=== PATIENT | male | born 1995 | race Caucasian/White ===

== ENCOUNTER 2019-05-30 14:44 | Observation (INO) | payer SELFPAY ==
[2019-05-30] MEDS ORDERED: Sodium Chloride 0.9% 1,000 ML IV ONE (14:54)
--- NOTE | 2019-05-30 15:00 | EDM.PDOC ---
ED HPI GENERAL MEDICAL PROBLEM - General Chief Complaint: Skin Complaint Stated Complaint: LEFT ARM SWOLLEN Time Seen by Provider: 05/30/19 14:45 - History of Present Illness INITIAL COMMENTS - FREE TEXT/NARRATIVE: HISTORY AND PHYSICAL: History of present illness: Patient 24-year-old white male history of IV drug abuse who presents with concern of swollen left arm and concern of infection from IV drug abuse is been worse over last 24-48 hours and started in the antecubital area where he injects he denies fever chills nausea vomiting chest returns breath or other concern Review of systems: As per history of present illness and below otherwise all systems reviewed and negative. Past medical history: As per history of present illness and as reviewed below otherwise noncontributory. Surgical history: As per history of present illness and as reviewed below otherwise noncontributory. Social history: No reported history of drug or alcohol abuse. Family history: As per history of present illness and as reviewed below otherwise noncontributory. Physical exam: HEENT: Atraumatic, normocephalic, pupils reactive, negative for conjunctival pallor or scleral icterus, mucous membranes moist, throat clear, neck supple, nontender, trachea midline. Lungs: Clear to auscultation, breath sounds equal bilaterally, chest nontender. Heart: S1S2, regular, negative for clicks, rubs, or JVD. Abdomen: Soft, nondistended, nontender. Negative for masses or hepatosplenomegaly. Negative for costovertebral tenderness. Pelvis: Stable nontender. Genitourinary: Deferred. Rectal: Deferred. Extremities: Erythema swelling induration and warmth noted in the antecubital fossa of his left arm with moderate to large swelling neurovascular exam is unremarkable. Neuro: Awake, alert, oriented. Cranial nerves II through XII unremarkable. Cerebellum unremarkable. Motor and sensory unremarkable throughout. Exam nonfocal. Diagnostics: CBC CMP blood culture 2 x-ray left humerus left forearm UA urine drug screen Therapeutics: Saline 1 L bolus vancomycin 1 g IV Impression: #1 history of IV drug abuse #2 cellulitis left upper extremity Definitive disposition and diagnosis as appropriate pending reevaluation and review of above. Left Arm Pain Score (Numeric/FACES): 8 - Related Data Allergies Allergy/AdvReac Type Severity Reaction Status Date / Time No Known Allergies Allergy Verified 05/30/19 14:55 Home Meds: Home Meds . [No Known Home Meds] 10/16/18 [History] Past Medical History - Past Health History Medical/Surgical History: Denies Medical/Surgical History Social & Family History - Family History Family Medical History: Noncontributory - Caffeine Use Caffeine Use: Reports: Soda ED ROS GENERAL - Review of Systems Review Of Systems: ROS reveals no pertinent complaints other than HPI. ED EXAM, SKIN/RASH Exam: See Below (See dictation) Course - Vital Signs Last Recorded V/S: Last Vital Signs Temp 36.1 C 05/30/19 14:51 Pulse 116 H 05/30/19 14:51 Resp 18 05/30/19 14:51 BP 144/88 H 05/30/19 14:51 Pulse Ox 98 05/30/19 14:51 - Orders/Labs/Meds Orders: Active Orders 24 hr Category Date Time Status Forearm 2V Lt [CR] Stat Exams 05/30/19 14:54 Ordered Humerus Lt [CR] Stat Exams 05/30/19 14:54 Ordered CBC WITH AUTO DIFF [HEME] Stat Lab 05/30/19 14:53 Ordered COMPREHENSIVE METABOLIC PN,CMP [CHEM] Stat Lab 05/30/19 14:53 Ordered CULTURE BLOOD [BC] Stat Lab 05/30/19 14:54 Ordered CULTURE BLOOD [BC] Stat Lab 05/30/19 14:54 Ordered DRUG SCREEN, URINE [URCHEM] Stat Lab 05/30/19 14:54 Ordered UA RFX CARTER AND CULT IF INDIC [URIN] Stat Lab 05/30/19 14:54 Ordered Sodium Chloride 0.9% [Normal Saline] 1,000 ml Med 05/30/19 14:54 Ordered IV STAT Vancomycin 1 gm Med 05/30/19 14:54 Ordered Sodium Chloride 0.9% [Normal Saline] 250 ml IV ONETIME Blood Culture x2 Reflex Set [OM.PC] Stat Oth 05/30/19 14:54 Ordered Medication Orders Sodium Chloride (Normal Saline) 1,000 mls @ 999 mls/hr IV STAT ONE Stop: 05/30/19 15:54 Vancomycin HCl 1 gm/ Sodium (Chloride) 250 mls @ 166 mls/hr IV ONETIME ONE Stop: 05/30/19 16:24 Meds: Medications Generic Name Dose Route Start Last Admin Trade Name Freq PRN Reason Stop Dose Admin Sodium Chloride 1,000 mls @ 999 mls/hr 08/16/19 14:54 Normal Saline IV 05/30/19 15:54 STAT ONE Vancomycin HCl 1 gm/ Sodium 250 mls @ 166 mls/hr 05/30/19 14:54 Chloride IV 05/30/19 16:24 ONETIME ONE Departure - Departure Time of Disposition: 14:59 Disposition: Admitted As Inpatient 66 Condition: Good Clinical Impression: Cellulitis, IV drug abuse - Discharge Information Referrals: PCP,Unknown [Primary Care Provider] - - My Orders Last 24 Hours: My Active Orders 05/30/19 14:53 CBC WITH AUTO DIFF [HEME] Stat COMPREHENSIVE METABOLIC PN,CMP [CHEM] Stat 05/30/19 14:54 Forearm 2V Lt [CR] Stat Humerus Lt [CR] Stat CULTURE BLOOD [BC] Stat CULTURE BLOOD [BC] Stat DRUG SCREEN, URINE [URCHEM] Stat UA RFX CARTER AND CULT IF INDIC [URIN] Stat Sodium Chloride 0.9% [Normal Saline] 1,000 ml IV STAT Vancomycin 1 gm Sodium Chloride 0.9% [Normal Saline] 250 ml IV ONETIME Blood Culture x2 Reflex Set [OM.PC] Stat - Assessment/Plan Last 24 Hours: My Active Orders 05/30/19 14:53 CBC WITH AUTO DIFF [HEME] Stat COMPREHENSIVE METABOLIC PN,CMP [CHEM] Stat 05/30/19 14:54 Forearm 2V Lt [CR] Stat Humerus Lt [CR] Stat CULTURE BLOOD [BC] Stat CULTURE BLOOD [BC] Stat DRUG SCREEN, URINE [URCHEM] Stat UA RFX CARTER AND CULT IF INDIC [URIN] Stat Sodium Chloride 0.9% [Normal Saline] 1,000 ml IV STAT Vancomycin 1 gm Sodium Chloride 0.9% [Normal Saline] 250 ml IV ONETIME Blood Culture x2 Reflex Set [OM.PC] Stat
[2019-05-30] MEDS ORDERED: Vancomycin 1 GM SDV ONE (15:06)
[2019-05-30] MEDS ORDERED: Sodium Chloride 0.9% 250 ML ONE (15:08)
[2019-05-30 15:55] LABS: CHLORIDE,CL 101 mmol/L (98-107); SODIUM,NA 138 mmol/L (136-148)
--- NOTE | 2019-05-30 16:35 | CR ---
Indication: Pain Technique: Two views of the left forearm Comparison: None available Findings: Bones: Alignment is normal. No fractures or bone lesions. Joint spaces: Unremarkable. Soft tissues: Unremarkable. Impression: Negative. Dictated by Roque Alvarez MD @ 05/30/2019 4:34:26 PM Dictated by: Roque Alvarez MD @ 05/30/2019 16:34:29 (Electronically Signed)
[2019-05-30] MEDS ORDERED: Acetaminophen 325 MG Tab PO ONE (16:37)
--- NOTE | 2019-05-30 16:37 | CR ---
Indication: Pain Technique: Two views of the left humerus Comparison: None available Findings: Bones: Alignment is normal. No fractures or bone lesions. Joint spaces: Unremarkable. Soft tissues: Unremarkable. Impression: Negative. Dictated by Roque Alvarze MD @ 05/30/2019 4:35:39 PM Dictated by: Roque Alvarez MD @ 05/30/2019 16:35:44 (Electronically Signed)
[2019-05-30] MEDS ORDERED: Acetaminophen 500 MG Tab ONE (16:46)
[2019-05-30] MEDS ORDERED: Ketorolac 30 MG/ML SDV IM PRN (16:50)
[2019-05-30] MEDS ORDERED: Ondansetron 4 MG/2 ML SDV IVPUSH PRN (16:50)
[2019-05-30] MEDS ORDERED: Ibuprofen 800 MG Tab PO PRN (16:50)
[2019-05-30] MEDS ORDERED: Ondansetron 4 MG Tab.DIS PO PRN (16:50)
[2019-05-30] MEDS ORDERED: Acetaminophen 325 MG Tab PO PRN (16:50)
[2019-05-30] MEDS ORDERED: Enoxaparin 40 MG/0.4 ML Syringe SUBCUT SCH (17:00)
--- NOTE | 2019-05-30 17:25 | PCM.HP.2 ---
<Cristi Caceres - Last Filed: 05/30/19 17:28> H&P History of Present Illness - General Date of Service: 05/30/19 Admit Problem/Dx: Admission Diagnosis/Problem Admission Diagnosis/Problem Cellulitis - History of Present Illness Initial Comments - Free Text/Narative: 24 y/o male with history of polysubstance abuse who presented to the ER complaining of left forearm, elbow pain. Patient states that he injected IV meth on his left forearm about 2 days ago. He has previously injected heroin as well in the past. States that he started having left forearm pain and swelling yesterday. Red, warm and tender. Pain rated 8/10. Able to move fingers and sensation intact. Endorses subjective fevers. No vomiting, dyspnea, abdominal pain, dysuria, diarrhea. Denies any pain, rashes anywhere else on body. Has not taken any antibiotics at home. He works in [employer]. Lives with his father. Drinks occasionally. No history of withdrawal seizures. Not taking any other prescriptions or over the counter meds. In the ER, he was found to have some mild leukocytosis. No fever. Xray of left elbow, forearm did not show any bone involvement. Received one dose of vancomycin. Left Arm Pain Score (Numeric/FACES): 8 - Related Data Allergies/Adverse Reactions: Allergies Allergy/AdvReac Type Severity Reaction Status Date / Time No Known Allergies Allergy Verified 05/30/19 14:55 Home Medications: Home Meds . [No Known Home Meds] 10/16/18 [History] Past Medical History - Past Health History Medical/Surgical History: Denies Medical/Surgical History HEENT History: Reports: None Cardiovascular History: Reports: None Respiratory History: Reports: None Gastrointestinal History: Reports: None Genitourinary History: Reports: None Musculoskeletal History: Reports: None Neurological History: Reports: None Psychiatric History: Reports: None Endocrine/Metabolic History: Reports: None Oncologic (Cancer) History: Reports: None Dermatologic History: Reports: None - Infectious Disease History Infectious Disease History: Reports: None - Past Surgical History Head Surgeries/Procedures: Reports: None Male Surgical History: Reports: None Social & Family History - Family History Family Medical History: Noncontributory - Tobacco Use Smoking Status *Q: Never Smoker Second Hand Smoke Exposure: No - Caffeine Use Caffeine Use: Reports: Soda - Recreational Drug Use Recreational Drug Use: Yes Recreational Drug Type: Reports: Methamphetamine Recreational Drug Use Frequency: Daily H&P Review of Systems - Review of Systems: Review Of Systems: ROS reveals no pertinent complaints other than HPI. Exam - Exam Exam: See Below - Vital Signs Vital Signs: Last Vital Signs Temp 36.6 C 05/30/19 16:38 Pulse 103 H 05/30/19 16:38 Resp 20 05/30/19 16:38 BP 144/88 H 05/30/19 14:51 Pulse Ox 100 05/30/19 16:38 Weight: 83.915 kg - Exam General: Alert, Oriented, Cooperative HEENT: Mucosa Moist & [place] Lungs: Clear to Auscultation, Normal Respiratory Effort. No: Crackles, Wheezing Cardiovascular: Regular Rate, Regular Rhythm GI/Abdominal Exam: Normal Bowel Sounds, Soft, Non-Tender Extremities: Normal Inspection, No Pedal Edema Skin: Other (left forearm- swelling from elbow down to forearm. warm and tender. forming abscess on left AC fossa. sensation intact. able to move fingers.) Neuro Extensive - Mental Status: Alert, Oriented x3 - Patient Data Lab Results Last 24 hrs: Laboratory Results - last 24 hr 05/30/19 05/30/19 Range/Units 15:13 15:13 WBC 12.78 H (4.0-11.0) K/uL RBC 4.95 (4.50-5.90) M/uL Hgb 14.8 (13.0-17.0) g/dL Hct 44.3 (38.0-50.0) % MCV 89.5 (80.0-98.0) fL MCH 29.9 (27.0-32.0) pg MCHC 33.4 (31.0-37.0) g/dL RDW Std Deviation 41.9 (28.0-62.0) fl RDW Coeff of Remedios 13 (11.0-15.0) % Plt Count 250 (150-400) K/uL MPV 9.40 (7.40-12.00) fL Neut % (Auto) 76.9 (48.0-80.0) % Lymph % (Auto) 14.2 L (16.0-40.0) % [place] % (Auto) 8.2 (0.0-15.0) % Eos % (Auto) 0.5 (0.0-7.0) % Baso % (Auto) 0.2 (0.0-1.5) % Neut # (Auto) 9.8 H (1.4-5.7) K/uL Lymph # (Auto) 1.8 (0.6-2.4) K/uL [place] # (Auto) 1.1 H (0.0-0.8) K/uL Eos # (Auto) 0.1 (0.0-0.7) K/uL Baso # (Auto) 0.0 (0.0-0.1) K/uL Nucleated RBC % 0.0 /100WBC Nucleated RBCs # 0 K/uL Sodium 138 (136-148) mmol/L Potassium 4.0 (3.5-5.1) mmol/L Chloride 101 (98-107) mmol/L Carbon Dioxide 23.2 (21.0-32.0) mmol/L BUN 7 (7.0-18.0) mg/dL Creatinine 0.8 (0.8-1.3) mg/dL Est Cr Clr Drug Dosing 147.01 mL/min Estimated GFR (MDRD) > 60.0 ml/min Glucose 96 (74-106) mg/dL Calcium 9.4 (8.5-10.1) mg/dL Total Bilirubin 0.7 (0.2-1.0) mg/dL AST 13 L (15-37) IU/L ALT 19 (14-63) IU/L Alkaline Phosphatase 81 (46-116) U/L Total Protein 7.4 (6.4-8.2) g/dL Albumin 3.4 (3.4-5.0) g/dL Globulin 4.0 (2.6-4.0) g/dL Albumin/Globulin Ratio 0.9 (0.9-1.6) Result Diagrams: 05/30/19 15:13 05/30/19 15:13 Problem List Initiated/Reviewed/Updated: Yes Orders Last 24hrs: Active Orders 24 hr Category Date Time Status Patient Status [ADT] Routine ADT 05/30/19 16:50 Active Patient Status [ADT] Stat ADT 05/30/19 16:50 Active Intake and Output [RC] QSHIFT Care 05/30/19 16:51 Active Oxygen Therapy [RC] PRN Care 05/30/19 16:50 Active Up ad Farzaneh [RC] ASDIRECTED Care 05/30/19 16:50 Active VTE/DVT Education [RC] PER UNIT ROUTINE Care 05/30/19 16:50 Active Vital Signs [RC] Q4H Care 05/30/19 16:50 Active Regular Diet [DIET] Diet 05/30/19 Dinner Active CBC WITH AUTO DIFF [HEME] AM Lab 05/31/19 05:11 Ordered CBC WITH AUTO DIFF [HEME] AM Lab 06/01/19 05:11 Ordered COMPREHENSIVE METABOLIC PN,CMP [CHEM] AM Lab 05/31/19 05:11 Ordered COMPREHENSIVE METABOLIC PN,CMP [CHEM] AM Lab 06/01/19 05:11 Ordered CULTURE BLOOD [BC] Stat Lab 05/30/19 15:10 Received CULTURE BLOOD [BC] Stat Lab 05/30/19 15:13 Received DRUG SCREEN, URINE [URCHEM] Stat Lab 05/30/19 17:05 Received UA RFX CARTER AND CULT IF INDIC [URIN] Stat Lab 05/30/19 17:00 Received Acetaminophen [Tylenol] Med 05/30/19 16:50 Active 650 mg PO Q4H PRN Enoxaparin [Lovenox] Med 05/30/19 17:00 Active 40 mg SUBCUT Q24H Ibuprofen [Motrin] Med 05/30/19 16:50 Active 800 mg PO Q6H PRN Ketorolac [Toradol] Med 05/30/19 16:50 Active 15 mg IM Q6H PRN Ondansetron [Zofran ODT] Med 05/30/19 16:50 Active 4 mg PO Q4H PRN Ondansetron [Zofran] Med 05/30/19 16:50 Active 4 mg IVPUSH Q4H PRN Vancomycin 1.25 gm Med 05/31/19 08:00 Active Sodium Chloride 0.9% [Normal Saline] 250 ml IV Q12H Blood Culture x2 Reflex Set [OM.PC] Stat Oth 05/30/19 14:54 Ordered Resuscitation Status Routine Resus Stat 05/30/19 16:50 Ordered Medication Orders Acetaminophen (Tylenol) 650 mg PO Q4H PRN PRN Reason: Pain (Mild 1-3)/fever Enoxaparin Sodium (Lovenox) 40 mg SUBCUT Q24H ALEC Vancomycin HCl 1.25 gm/ Sodium (Chloride) 250 mls @ 167 mls/hr IV Q12H ALEC Ibuprofen (Motrin) 800 mg PO Q6H PRN PRN Reason: Pain (mild 1-3) Ketorolac Tromethamine (Toradol) 15 mg IM Q6H PRN PRN Reason: Pain (moderate 4-6) Ondansetron HCl (Zofran Odt) 4 mg PO Q4H PRN PRN Reason: nausea, able to take PO Ondansetron HCl (Zofran) 4 mg IVPUSH Q4H PRN PRN Reason: Nausea Assessment/Plan Comment:: A: 1. left forearm cellulitis 2. Polysubstance abuse P: 1. Will treat cellulitis with vancomycin. blood cultures pending. tylenol for fevers. If still febrile and not improving, may consider TTE to evaluate heart. dispo: 1-2 days. <Danny Peace - Last Filed: 05/30/19 17:42> H&P History of Present Illness - General Admit Problem/Dx: Admission Diagnosis/Problem Admission Diagnosis/Problem Cellulitis I have examined the patient independently of medical administrative specialist, Dr. Ann MD. I have discussed the case with him. I have reviewed and agree with the examination and plan as outlined by him. Please see orders. Exam - Vital Signs Vital Signs: Last Vital Signs Temp 36.7 C 05/30/19 17:30 Pulse 102 H 05/30/19 17:30 Resp 16 05/30/19 17:30 BP 93/36 L 05/30/19 17:30 Pulse Ox 99 05/30/19 17:30 - Patient Data Lab Results Last 24 hrs: Laboratory Results - last 24 hr 05/30/19 05/30/19 05/30/19 Range/Units 15:13 15:13 17:00 WBC 12.78 H (4.0-11.0) K/uL RBC 4.95 (4.50-5.90) M/uL Hgb 14.8 (13.0-17.0) g/dL Hct 44.3 (38.0-50.0) % MCV 89.5 (80.0-98.0) fL MCH 29.9 (27.0-32.0) pg MCHC 33.4 (31.0-37.0) g/dL RDW Std Deviation 41.9 (28.0-62.0) fl RDW Coeff of Remedios 13 (11.0-15.0) % Plt Count 250 (150-400) K/uL MPV 9.40 (7.40-12.00) fL Neut % (Auto) 76.9 (48.0-80.0) % Lymph % (Auto) 14.2 L (16.0-40.0) % [place]ink[place] % (Auto) 8.2 (0.0-15.0) % Eos % (Auto) 0.5 (0.0-7.0) % Baso % (Auto) 0.2 (0.0-1.5) % Neut # (Auto) 9.8 H (1.4-5.7) K/uL Lymph # (Auto) 1.8 (0.6-2.4) K/uL [place]ink[place] # (Auto) 1.1 H (0.0-0.8) K/uL Eos # (Auto) 0.1 (0.0-0.7) K/uL Baso # (Auto) 0.0 (0.0-0.1) K/uL Nucleated RBC % 0.0 /100WBC Nucleated RBCs # 0 K/uL Sodium 138 (136-148) mmol/L Potassium 4.0 (3.5-5.1) mmol/L Chloride 101 (98-107) mmol/L Carbon Dioxide 23.2 (21.0-32.0) mmol/L BUN 7 (7.0-18.0) mg/dL Creatinine 0.8 (0.8-1.3) mg/dL Est Cr Clr Drug Dosing 147.01 mL/min Estimated GFR (MDRD) > 60.0 ml/min Glucose 96 (74-106) mg/dL Calcium 9.4 (8.5-10.1) mg/dL Total Bilirubin 0.7 (0.2-1.0) mg/dL AST 13 L (15-37) IU/L ALT 19 (14-63) IU/L Alkaline Phosphatase 81 (46-116) U/L Total Protein 7.4 (6.4-8.2) g/dL Albumin 3.4 (3.4-5.0) g/dL Globulin 4.0 (2.6-4.0) g/dL Albumin/Globulin Ratio 0.9 (0.9-1.6) Urine Color YELLOW Urine Appearance CLEAR Urine pH 7.0 (5.0-8.0) Ur Specific [place] <= 1.005 (1.001-1.035) Urine Protein NEGATIVE (NEGATIVE) mg/dL Urine Glucose (UA) NEGATIVE (NEGATIVE) mg/dL Urine Ketones NEGATIVE (NEGATIVE) mg/dL Urine Occult Blood NEGATIVE (NEGATIVE) Urine Nitrite NEGATIVE (NEGATIVE) Urine Bilirubin NEGATIVE (NEGATIVE) Urine Urobilinogen 0.2 (<2.0) EU/dL Ur Leukocyte Esterase NEGATIVE (NEGATIVE) Urine Opiates Screen (NEGATIVE) Ur Oxycodone Screen (NEGATIVE) Urine Methadone Screen (NEGATIVE) Ur Barbiturates Screen (NEGATIVE) Ur Phencyclidine Scrn (NEGATIVE) Ur Amphetamine Screen (NEGATIVE) U Methamphetamines Scrn (NEGATIVE) U Benzodiazepines Scrn (NEGATIVE) U Cocaine Metab Screen (NEGATIVE) U Marijuana (THC) Screen (NEGATIVE) 05/30/19 Range/Units 17:05 WBC (4.0-11.0) K/uL RBC (4.50-5.90) M/uL Hgb (13.0-17.0) g/dL Hct (38.0-50.0) % MCV (80.0-98.0) fL MCH (27.0-32.0) pg MCHC (31.0-37.0) g/dL RDW Std Deviation (28.0-62.0) fl RDW Coeff of Remedios (11.0-15.0) % Plt Count (150-400) K/uL MPV (7.40-12.00) fL Neut % (Auto) (48.0-80.0) % Lymph % (Auto) (16.0-40.0) % Winkler % (Auto) (0.0-15.0) % Eos % (Auto) (0.0-7.0) % Baso % (Auto) (0.0-1.5) % Neut # (Auto) (1.4-5.7) K/uL Lymph # (Auto) (0.6-2.4) K/uL [place]ink[place] # (Auto) (0.0-0.8) K/uL Eos # (Auto) (0.0-0.7) K/uL Baso # (Auto) (0.0-0.1) K/uL Nucleated RBC % /100WBC Nucleated RBCs # K/uL Sodium (136-148) mmol/L Potassium (3.5-5.1) mmol/L Chloride (98-107) mmol/L Carbon Dioxide (21.0-32.0) mmol/L BUN (7.0-18.0) mg/dL Creatinine (0.8-1.3) mg/dL Est Cr Clr Drug Dosing mL/min Estimated GFR (MDRD) ml/min Glucose (74-106) mg/dL Calcium (8.5-10.1) mg/dL Total Bilirubin (0.2-1.0) mg/dL AST (15-37) IU/L ALT (14-63) IU/L Alkaline Phosphatase (46-116) U/L Total Protein (6.4-8.2) g/dL Albumin (3.4-5.0) g/dL Globulin (2.6-4.0) g/dL Albumin/Globulin Ratio (0.9-1.6) Urine Color Urine Appearance Urine pH (5.0-8.0) Ur Specific [place] (1.001-1.035) Urine Protein (NEGATIVE) mg/dL Urine Glucose (UA) (NEGATIVE) mg/dL Urine Ketones (NEGATIVE) mg/dL Urine Occult Blood (NEGATIVE) Urine Nitrite (NEGATIVE) Urine Bilirubin (NEGATIVE) Urine Urobilinogen (<2.0) EU/dL Ur Leukocyte Esterase (NEGATIVE) Urine Opiates Screen NEGATIVE (NEGATIVE) Ur Oxycodone Screen NEGATIVE (NEGATIVE) Urine Methadone Screen NEGATIVE (NEGATIVE) Ur Barbiturates Screen NEGATIVE (NEGATIVE) Ur Phencyclidine Scrn NEGATIVE (NEGATIVE) Ur Amphetamine Screen NEGATIVE (NEGATIVE) U Methamphetamines Scrn NEGATIVE (NEGATIVE) U Benzodiazepines Scrn NEGATIVE (NEGATIVE) U Cocaine Metab Screen NEGATIVE (NEGATIVE) U Marijuana (THC) Screen NEGATIVE (NEGATIVE) Result Diagrams: 05/30/19 15:13 05/30/19 15:13 Orders Last 24hrs: Active Orders 24 hr Category Date Time Status Patient Status [ADT] Routine ADT 05/30/19 16:50 Active Patient Status [ADT] Stat ADT 05/30/19 16:50 Active Intake and Output [RC] QSHIFT Care 05/30/19 16:51 Active Oxygen Therapy [RC] PRN Care 05/30/19 16:50 Active Up ad Farzaneh [RC] ASDIRECTED Care 05/30/19 16:50 Active VTE/DVT Education [RC] PER UNIT ROUTINE Care 05/30/19 16:50 Active Vital Signs [RC] Q4H Care 05/30/19 16:50 Active Regular Diet [DIET] Diet 05/30/19 Dinner Active CBC WITH AUTO DIFF [HEME] AM Lab 05/31/19 05:11 Ordered CBC WITH AUTO DIFF [HEME] AM Lab 06/01/19 05:11 Ordered COMPREHENSIVE METABOLIC PN,CMP [CHEM] AM Lab 05/31/19 05:11 Ordered COMPREHENSIVE METABOLIC PN,CMP [CHEM] AM Lab 06/01/19 05:11 Ordered CULTURE BLOOD [BC] Stat Lab 05/30/19 15:10 Received CULTURE BLOOD [BC] Stat Lab 05/30/19 15:13 Received Acetaminophen [Tylenol] Med 05/30/19 16:50 Active 650 mg PO Q4H PRN Enoxaparin [Lovenox] Med 05/30/19 17:00 Active 40 mg SUBCUT Q24H Ibuprofen [Motrin] Med 05/30/19 16:50 Active 800 mg PO Q6H PRN Ketorolac [Toradol] Med 05/30/19 16:50 Active 15 mg IM Q6H PRN Ondansetron [Zofran ODT] Med 05/30/19 16:50 Active 4 mg PO Q4H PRN Ondansetron [Zofran] Med 05/30/19 16:50 Active 4 mg IVPUSH Q4H PRN Vancomycin 1.25 gm Med 05/31/19 08:00 Active Sodium Chloride 0.9% [Normal Saline] 250 ml IV Q12H Blood Culture x2 Reflex Set [OM.PC] Stat Oth 05/30/19 14:54 Ordered Resuscitation Status Routine Resus Stat 05/30/19 16:50 Ordered Medication Orders Acetaminophen (Tylenol) 650 mg PO Q4H PRN PRN Reason: Pain (Mild 1-3)/fever Enoxaparin Sodium (Lovenox) 40 mg SUBCUT Q24H ALEC Vancomycin HCl 1.25 gm/ Sodium (Chloride) 250 mls @ 167 mls/hr IV Q12H ALEC Ibuprofen (Motrin) 800 mg PO Q6H PRN PRN Reason: Pain (mild 1-3) Ketorolac Tromethamine (Toradol) 15 mg IM Q6H PRN PRN Reason: Pain (moderate 4-6) Ondansetron HCl (Zofran Odt) 4 mg PO Q4H PRN PRN Reason: nausea, able to take PO Ondansetron HCl (Zofran) 4 mg IVPUSH Q4H PRN PRN Reason: Nausea
[2019-05-31 06:46] LABS: CHLORIDE,CL 105 mmol/L (98-107); SODIUM,NA 140 mmol/L (136-148)
--- NOTE | 2019-05-31 10:11 | PCM.DCSUM1 ---
<Dewayne Khan - Last Filed: 05/31/19 10:06> Discharge Summary - Hospital Course Free Text/Narrative:: 24-year-old male admitted for left forearm cellulitis. He has a history of IV drug use including heroin and methamphetamine. On admission, he was found to have an elevated WBC count of 12. He was started on IV vancomycin. X-rays of forearm and humerus showed no bone involvement. There was a small forming abscess on skin surface that drained spontaneously overnight. Patient remained afebrile throughout hospitalization. On day of discharge, patient noted an improvement in pain and area of cellulitis was non-tender to palpation and appeared less erythematous. Patient was discharged on Bactrim DS x 8 days and was instructed to follow-up with PCP. - Discharge Data Discharge Date: 05/31/19 Discharge Disposition: Home, Self-Care 01 Condition: Stable - Patient Instructions Diet: Regular Diet as Tolerated Activity: As Tolerated Notify Provider of: Fever, Increased Pain, Swelling and Redness, Drainage, Nausea and/or Vomiting - Discharge Plan *PRESCRIPTION DRUG MONITORING PROGRAM REVIEWED*: Not Applicable *COPY OF PRESCRIPTION DRUG MONITORING REPORT IN PATIENT APOLONIA: Not Applicable Prescriptions/Med Rec: Sulfamethoxazole/Trimethoprim [Bactrim Ds Tablet] 1 each PO BID 8 Days #16 tablet Home Medications: Home Meds Sulfamethoxazole/Trimethoprim [Bactrim Ds Tablet] 1 each PO BID 8 Days #16 tablet 05/31/19 [Rx] Patient Handouts: Cellulitis, Adult, [id number], Sulfamethoxazole; Trimethoprim, [id number]-[id number] tablets Referrals: [facility] [Outside] (Please call either [facility] or [facility] on Sunday, June 02, 2019 to establish a primary care provider and to arrange for one week post-hospital follow-up appointment.) [facility] [Outside] (Please call either [facility] or [facility] on Sunday, June 02, 2019 to establish a primary care provider and to arrange for one week post-hospital follow-up appointment.) - Discharge Summary/Plan Comment DC Time >30 min.: No - Patient Data Vitals - Most Recent: Last Vital Signs Temp 98.6 F 05/31/19 08:00 Pulse 80 05/31/19 08:00 Resp 16 05/31/19 08:00 BP 102/55 L 05/31/19 08:00 Pulse Ox 98 05/31/19 08:00 Weight - Most Recent: 83.461 kg I&O - Last 24 hours: Intake & Output 05/30/19 05/31/19 05/31/19 22:59 06:59 14:59 Intake Total 300 250 Output Total 1750 Balance -1450 250 Lab Results - Last 24 hrs: Laboratory Results - last 24 hr 05/30/19 05/30/19 05/30/19 Range/Units 15:13 15:13 17:00 WBC 12.78 H (4.0-11.0) K/uL RBC 4.95 (4.50-5.90) M/uL Hgb 14.8 (13.0-17.0) g/dL Hct 44.3 (38.0-50.0) % MCV 89.5 (80.0-98.0) fL MCH 29.9 (27.0-32.0) pg MCHC 33.4 (31.0-37.0) g/dL RDW Std Deviation 41.9 (28.0-62.0) fl RDW Coeff of Remedios 13 (11.0-15.0) % Plt Count 250 (150-400) K/uL MPV 9.40 (7.40-12.00) fL Neut % (Auto) 76.9 (48.0-80.0) % Lymph % (Auto) 14.2 L (16.0-40.0) % [place] % (Auto) 8.2 (0.0-15.0) % Eos % (Auto) 0.5 (0.0-7.0) % Baso % (Auto) 0.2 (0.0-1.5) % Neut # (Auto) 9.8 H (1.4-5.7) K/uL Lymph # (Auto) 1.8 (0.6-2.4) K/uL [place] # (Auto) 1.1 H (0.0-0.8) K/uL Eos # (Auto) 0.1 (0.0-0.7) K/uL Baso # (Auto) 0.0 (0.0-0.1) K/uL Nucleated RBC % 0.0 /100WBC Nucleated RBCs # 0 K/uL Sodium 138 (136-148) mmol/L Potassium 4.0 (3.5-5.1) mmol/L Chloride 101 (98-107) mmol/L Carbon Dioxide 23.2 (21.0-32.0) mmol/L BUN 7 (7.0-18.0) mg/dL Creatinine 0.8 (0.8-1.3) mg/dL Est Cr Clr Drug Dosing 147.01 mL/min Estimated GFR (MDRD) > 60.0 ml/min Glucose 96 (74-106) mg/dL Calcium 9.4 (8.5-10.1) mg/dL Total Bilirubin 0.7 (0.2-1.0) mg/dL AST 13 L (15-37) IU/L ALT 19 (14-63) IU/L Alkaline Phosphatase 81 (46-116) U/L Total Protein 7.4 (6.4-8.2) g/dL Albumin 3.4 (3.4-5.0) g/dL Globulin 4.0 (2.6-4.0) g/dL Albumin/Globulin Ratio 0.9 (0.9-1.6) Urine Color YELLOW Urine Appearance CLEAR Urine pH 7.0 (5.0-8.0) Ur Specific [place] <= 1.005 (1.001-1.035) Urine Protein NEGATIVE (NEGATIVE) mg/dL Urine Glucose (UA) NEGATIVE (NEGATIVE) mg/dL Urine Ketones NEGATIVE (NEGATIVE) mg/dL Urine Occult Blood NEGATIVE (NEGATIVE) Urine Nitrite NEGATIVE (NEGATIVE) Urine Bilirubin NEGATIVE (NEGATIVE) Urine Urobilinogen 0.2 (<2.0) EU/dL Ur Leukocyte Esterase NEGATIVE (NEGATIVE) Urine Opiates Screen (NEGATIVE) Ur Oxycodone Screen (NEGATIVE) Urine Methadone Screen (NEGATIVE) Ur Barbiturates Screen (NEGATIVE) Ur Phencyclidine Scrn (NEGATIVE) Ur Amphetamine Screen (NEGATIVE) U Methamphetamines Scrn (NEGATIVE) U Benzodiazepines Scrn (NEGATIVE) U Cocaine Metab Screen (NEGATIVE) U Marijuana (THC) Screen (NEGATIVE) 05/30/19 05/31/19 05/31/19 Range/Units 17:05 06:03 06:03 WBC 9.79 (4.0-11.0) K/uL RBC 4.65 (4.50-5.90) M/uL Hgb 13.7 (13.0-17.0) g/dL Hct 41.7 (38.0-50.0) % MCV 89.7 (80.0-98.0) fL MCH 29.5 (27.0-32.0) pg MCHC 32.9 (31.0-37.0) g/dL RDW Std Deviation 42.5 (28.0-62.0) fl RDW Coeff of Remedios 13 (11.0-15.0) % Plt Count 246 (150-400) K/uL MPV 9.30 (7.40-12.00) fL Neut % (Auto) 63.7 (48.0-80.0) % Lymph % (Auto) 24.4 (16.0-40.0) % [place] % (Auto) 10.2 (0.0-15.0) % Eos % (Auto) 1.5 (0.0-7.0) % Baso % (Auto) 0.2 (0.0-1.5) % Neut # (Auto) 6.2 H (1.4-5.7) K/uL Lymph # (Auto) 2.4 (0.6-2.4) K/uL [place] # (Auto) 1.0 H (0.0-0.8) K/uL Eos # (Auto) 0.2 (0.0-0.7) K/uL Baso # (Auto) 0.0 (0.0-0.1) K/uL Nucleated RBC % 0.0 /100WBC Nucleated RBCs # 0 K/uL Sodium 140 (136-148) mmol/L Potassium 4.4 (3.5-5.1) mmol/L Chloride 105 (98-107) mmol/L Carbon Dioxide 28.0 (21.0-32.0) mmol/L BUN 8 (7.0-18.0) mg/dL Creatinine 0.8 (0.8-1.3) mg/dL Est Cr Clr Drug Dosing 147.01 mL/min Estimated GFR (MDRD) > 60.0 ml/min Glucose 97 (74-106) mg/dL Calcium 9.2 (8.5-10.1) mg/dL Total Bilirubin 0.5 (0.2-1.0) mg/dL AST 12 L (15-37) IU/L ALT 24 (14-63) IU/L Alkaline Phosphatase 74 (46-116) U/L Total Protein 6.8 (6.4-8.2) g/dL Albumin 3.0 L (3.4-5.0) g/dL Globulin 3.8 (2.6-4.0) g/dL Albumin/Globulin Ratio 0.8 L (0.9-1.6) Urine Color Urine Appearance Urine pH (5.0-8.0) Ur Specific [place] (1.001-1.035) Urine Protein (NEGATIVE) mg/dL Urine Glucose (UA) (NEGATIVE) mg/dL Urine Ketones (NEGATIVE) mg/dL Urine Occult Blood (NEGATIVE) Urine Nitrite (NEGATIVE) Urine Bilirubin (NEGATIVE) Urine Urobilinogen (<2.0) EU/dL Ur Leukocyte Esterase (NEGATIVE) Urine Opiates Screen NEGATIVE (NEGATIVE) Ur Oxycodone Screen NEGATIVE (NEGATIVE) Urine Methadone Screen NEGATIVE (NEGATIVE) Ur Barbiturates Screen NEGATIVE (NEGATIVE) Ur Phencyclidine Scrn NEGATIVE (NEGATIVE) Ur Amphetamine Screen NEGATIVE (NEGATIVE) U Methamphetamines Scrn NEGATIVE (NEGATIVE) U Benzodiazepines Scrn NEGATIVE (NEGATIVE) U Cocaine Metab Screen NEGATIVE (NEGATIVE) U Marijuana (THC) Screen NEGATIVE (NEGATIVE) Med Orders - Current: Current Medications Acetaminophen (Tylenol) 650 mg PO Q4H PRN PRN Reason: Pain (Mild 1-3)/fever Last Admin: 05/30/19 22:33 Dose: 650 mg Enoxaparin Sodium (Lovenox) 40 mg SUBCUT Q24H [facility] Last Admin: 05/30/19 17:49 Dose: 40 mg Vancomycin HCl 1.25 gm/ Sodium (Chloride) 250 mls @ 167 mls/hr IV Q12H [facility] Last Admin: 05/31/19 08:22 Dose: 167 mls/hr Ibuprofen (Motrin) 800 mg PO Q6H PRN PRN Reason: Pain (mild 1-3) Ketorolac Tromethamine (Toradol) 15 mg IM Q6H PRN PRN Reason: Pain (moderate 4-6) Last Admin: 05/31/19 08:29 Dose: 15 mg Ondansetron HCl (Zofran Odt) 4 mg PO Q4H PRN PRN Reason: nausea, able to take PO Ondansetron HCl (Zofran) 4 mg IVPUSH Q4H PRN PRN Reason: Nausea Discontinued Medications Acetaminophen (Tylenol) 1,000 mg PO NOW ONE Stop: 05/30/19 16:38 Last Admin: 05/30/19 17:47 Dose: Not Given Acetaminophen (Tylenol Extra Strength) Confirm Administered Dose 1,000 mg .ROUTE .STK-MED ONE Stop: 05/30/19 16:47 Last Admin: 05/30/19 16:49 Dose: 1,000 mg Sodium Chloride (Normal Saline) 1,000 mls @ 999 mls/hr IV STAT ONE Stop: 05/30/19 15:54 Last Admin: 05/30/19 15:10 Dose: 999 mls/hr Vancomycin HCl 1 gm/ Sodium (Chloride) 250 mls @ 166 mls/hr IV ONETIME ONE Stop: 05/30/19 16:24 Last Admin: 05/30/19 17:48 Dose: Not Given Vancomycin HCl 1 gm/ Sodium (Chloride) 250 mls @ 166 mls/hr IV ONETIME ONE Stop: 05/30/19 16:45 Last Admin: 05/30/19 15:10 Dose: 166 mls/hr Sodium Chloride (Normal Saline) Confirm Administered Dose 250 mls @ as directed .ROUTE .STK-MED ONE Stop: 05/30/19 15:09 Last Admin: 05/30/19 15:17 Dose: Not Given Vancomycin HCl 1.25 gm/ Sodium (Chloride) 250 mls @ 167 mls/hr IV Q12H [facility] Vancomycin HCl (Vancomycin) Confirm Administered Dose 1 gm .ROUTE .STK-MED ONE Stop: 05/30/19 15:07 Last Admin: 05/30/19 15:17 Dose: Not Given <Danny Peace - Last Filed: 05/31/19 11:20> Discharge Summary - Hospital Course Free Text/Narrative:: I have examined the patient independently of medical attendant, Dr. Bill MD. I have discussed the case with him. I have reviewed and agree with the examination and plan as outlined by him. Please see orders. - Patient Data Vitals - Most Recent: Last Vital Signs Temp 37.0 C 05/31/19 08:00 Pulse 80 05/31/19 08:00 Resp 16 05/31/19 08:00 BP 102/55 L 05/31/19 08:00 Pulse Ox 98 05/31/19 08:00 I&O - Last 24 hours: Intake & Output 05/30/19 05/31/19 05/31/19 22:59 06:59 14:59 Intake Total 300 370 Output Total 1750 Balance -1450 370 Lab Results - Last 24 hrs: Laboratory Results - last 24 hr 05/30/19 05/30/19 05/30/19 Range/Units 15:13 15:13 17:00 WBC 12.78 H (4.0-11.0) K/uL RBC 4.95 (4.50-5.90) M/uL Hgb 14.8 (13.0-17.0) g/dL Hct 44.3 (38.0-50.0) % MCV 89.5 (80.0-98.0) fL MCH 29.9 (27.0-32.0) pg MCHC 33.4 (31.0-37.0) g/dL RDW Std Deviation 41.9 (28.0-62.0) fl RDW Coeff of Remedios 13 (11.0-15.0) % Plt Count 250 (150-400) K/uL MPV 9.40 (7.40-12.00) fL Neut % (Auto) 76.9 (48.0-80.0) % Lymph % (Auto) 14.2 L (16.0-40.0) % Imperial % (Auto) 8.2 (0.0-15.0) % Eos % (Auto) 0.5 (0.0-7.0) % Baso % (Auto) 0.2 (0.0-1.5) % Neut # (Auto) 9.8 H (1.4-5.7) K/uL Lymph # (Auto) 1.8 (0.6-2.4) K/uL Imperial # (Auto) 1.1 H (0.0-0.8) K/uL Eos # (Auto) 0.1 (0.0-0.7) K/uL Baso # (Auto) 0.0 (0.0-0.1) K/uL Nucleated RBC % 0.0 /100WBC Nucleated RBCs # 0 K/uL Sodium 138 (136-148) mmol/L Potassium 4.0 (3.5-5.1) mmol/L Chloride 101 (98-107) mmol/L Carbon Dioxide 23.2 (21.0-32.0) mmol/L BUN 7 (7.0-18.0) mg/dL Creatinine 0.8 (0.8-1.3) mg/dL Est Cr Clr Drug Dosing 147.01 mL/min Estimated GFR (MDRD) > 60.0 ml/min Glucose 96 (74-106) mg/dL Calcium 9.4 (8.5-10.1) mg/dL Total Bilirubin 0.7 (0.2-1.0) mg/dL AST 13 L (15-37) IU/L ALT 19 (14-63) IU/L Alkaline Phosphatase 81 (46-116) U/L Total Protein 7.4 (6.4-8.2) g/dL Albumin 3.4 (3.4-5.0) g/dL Globulin 4.0 (2.6-4.0) g/dL Albumin/Globulin Ratio 0.9 (0.9-1.6) Urine Color YELLOW Urine Appearance CLEAR Urine pH 7.0 (5.0-8.0) Ur Specific [place] <= 1.005 (1.001-1.035) Urine Protein NEGATIVE (NEGATIVE) mg/dL Urine Glucose (UA) NEGATIVE (NEGATIVE) mg/dL Urine Ketones NEGATIVE (NEGATIVE) mg/dL Urine Occult Blood NEGATIVE (NEGATIVE) Urine Nitrite NEGATIVE (NEGATIVE) Urine Bilirubin NEGATIVE (NEGATIVE) Urine Urobilinogen 0.2 (<2.0) EU/dL Ur Leukocyte Esterase NEGATIVE (NEGATIVE) Urine Opiates Screen (NEGATIVE) Ur Oxycodone Screen (NEGATIVE) Urine Methadone Screen (NEGATIVE) Ur Barbiturates Screen (NEGATIVE) Ur Phencyclidine Scrn (NEGATIVE) Ur Amphetamine Screen (NEGATIVE) U Methamphetamines Scrn (NEGATIVE) U Benzodiazepines Scrn (NEGATIVE) U Cocaine Metab Screen (NEGATIVE) U Marijuana (THC) Screen (NEGATIVE) 05/30/19 05/31/19 05/31/19 Range/Units 17:05 06:03 06:03 WBC 9.79 (4.0-11.0) K/uL RBC 4.65 (4.50-5.90) M/uL Hgb 13.7 (13.0-17.0) g/dL Hct 41.7 (38.0-50.0) % MCV 89.7 (80.0-98.0) fL MCH 29.5 (27.0-32.0) pg MCHC 32.9 (31.0-37.0) g/dL RDW Std Deviation 42.5 (28.0-62.0) fl RDW Coeff of Remedios 13 (11.0-15.0) % Plt Count 246 (150-400) K/uL MPV 9.30 (7.40-12.00) fL Neut % (Auto) 63.7 (48.0-80.0) % Lymph % (Auto) 24.4 (16.0-40.0) % [place] % (Auto) 10.2 (0.0-15.0) % Eos % (Auto) 1.5 (0.0-7.0) % Baso % (Auto) 0.2 (0.0-1.5) % Neut # (Auto) 6.2 H (1.4-5.7) K/uL Lymph # (Auto) 2.4 (0.6-2.4) K/uL [place] # (Auto) 1.0 H (0.0-0.8) K/uL Eos # (Auto) 0.2 (0.0-0.7) K/uL Baso # (Auto) 0.0 (0.0-0.1) K/uL Nucleated RBC % 0.0 /100WBC Nucleated RBCs # 0 K/uL Sodium 140 (136-148) mmol/L Potassium 4.4 (3.5-5.1) mmol/L Chloride 105 (98-107) mmol/L Carbon Dioxide 28.0 (21.0-32.0) mmol/L BUN 8 (7.0-18.0) mg/dL Creatinine 0.8 (0.8-1.3) mg/dL Est Cr Clr Drug Dosing 147.01 mL/min Estimated GFR (MDRD) > 60.0 ml/min Glucose 97 (74-106) mg/dL Calcium 9.2 (8.5-10.1) mg/dL Total Bilirubin 0.5 (0.2-1.0) mg/dL AST 12 L (15-37) IU/L ALT 24 (14-63) IU/L Alkaline Phosphatase 74 (46-116) U/L Total Protein 6.8 (6.4-8.2) g/dL Albumin 3.0 L (3.4-5.0) g/dL Globulin 3.8 (2.6-4.0) g/dL Albumin/Globulin Ratio 0.8 L (0.9-1.6) Urine Color Urine Appearance Urine pH (5.0-8.0) Ur Specific [place] (1.001-1.035) Urine Protein (NEGATIVE) mg/dL Urine Glucose (UA) (NEGATIVE) mg/dL Urine Ketones (NEGATIVE) mg/dL Urine Occult Blood (NEGATIVE) Urine Nitrite (NEGATIVE) Urine Bilirubin (NEGATIVE) Urine Urobilinogen (<2.0) EU/dL Ur Leukocyte Esterase (NEGATIVE) Urine Opiates Screen NEGATIVE (NEGATIVE) Ur Oxycodone Screen NEGATIVE (NEGATIVE) Urine Methadone Screen NEGATIVE (NEGATIVE) Ur Barbiturates Screen NEGATIVE (NEGATIVE) Ur Phencyclidine Scrn NEGATIVE (NEGATIVE) Ur Amphetamine Screen NEGATIVE (NEGATIVE) U Methamphetamines Scrn NEGATIVE (NEGATIVE) U Benzodiazepines Scrn NEGATIVE (NEGATIVE) U Cocaine Metab Screen NEGATIVE (NEGATIVE) U Marijuana (THC) Screen NEGATIVE (NEGATIVE) Med Orders - Current: Current Medications Acetaminophen (Tylenol) 650 mg PO Q4H PRN PRN Reason: Pain (Mild 1-3)/fever Last Admin: 05/30/19 22:33 Dose: 650 mg Enoxaparin Sodium (Lovenox) 40 mg SUBCUT Q24H [facility] Last Admin: 05/30/19 17:49 Dose: 40 mg Vancomycin HCl 1.25 gm/ Sodium (Chloride) 250 mls @ 167 mls/hr IV Q12H [facility] Last Admin: 05/31/19 08:22 Dose: 167 mls/hr Ibuprofen (Motrin) 800 mg PO Q6H PRN PRN Reason: Pain (mild 1-3) Ketorolac Tromethamine (Toradol) 15 mg IM Q6H PRN PRN Reason: Pain (moderate 4-6) Last Admin: 05/31/19 08:29 Dose: 15 mg Ondansetron HCl (Zofran Odt) 4 mg PO Q4H PRN PRN Reason: nausea, able to take PO Ondansetron HCl (Zofran) 4 mg IVPUSH Q4H PRN PRN Reason: Nausea Discontinued Medications Acetaminophen (Tylenol) 1,000 mg PO NOW ONE Stop: 05/30/19 16:38 Last Admin: 05/30/19 17:47 Dose: Not Given Acetaminophen (Tylenol Extra Strength) Confirm Administered Dose 1,000 mg .ROUTE .STK-MED ONE Stop: 05/30/19 16:47 Last Admin: 05/30/19 16:49 Dose: 1,000 mg Sodium Chloride (Normal Saline) 1,000 mls @ 999 mls/hr IV STAT ONE Stop: 05/30/19 15:54 Last Admin: 05/30/19 15:10 Dose: 999 mls/hr Vancomycin HCl 1 gm/ Sodium (Chloride) 250 mls @ 166 mls/hr IV ONETIME ONE Stop: 05/30/19 16:24 Last Admin: 05/30/19 17:48 Dose: Not Given Vancomycin HCl 1 gm/ Sodium (Chloride) 250 mls @ 166 mls/hr IV ONETIME ONE Stop: 05/30/19 16:45 Last Admin: 05/30/19 15:10 Dose: 166 mls/hr Sodium Chloride (Normal Saline) Confirm Administered Dose 250 mls @ as directed .ROUTE .STK-MED ONE Stop: 05/30/19 15:09 Last Admin: 05/30/19 15:17 Dose: Not Given Vancomycin HCl 1.25 gm/ Sodium (Chloride) 250 mls @ 167 mls/hr IV Q12H [facility] Last Admin: 05/31/19 10:50 Dose: Not Given Vancomycin HCl (Vancomycin) Confirm Administered Dose 1 gm .ROUTE .STK-MED ONE Stop: 05/30/19 15:07 Last Admin: 05/30/19 15:17 Dose: Not Given
== END 2019-05-31 16:00 | disposition home or self-care (01) ==
LOC: MW.ED 14:44 → MW.MS 17:06
PROVIDERS: ADMIT Internal Medicine; ATTEND Internal Medicine
DX: L03.114 Cellulitis of left upper limb (principal); F11.10 Opioid abuse, uncomplicated; F15.10 Other stimulant abuse, uncomplicated
CPT/HCPCS: 36415; 73060; 73090; 80053; 80305; 81003; 85025; 87040; 96365; 96366; 99284; A9270; J1650; J1885; J3370; J7040; J7050; 96372; 96376; G0378

== ENCOUNTER 2019-06-02 13:28 | Emergency (ER) | payer SELFPAY ==
--- NOTE | 2019-06-02 13:42 | EDM.PDOC ---
ED HPI GENERAL MEDICAL PROBLEM - General Chief Complaint: Medication Administration Stated Complaint: MEDS Time Seen by Provider: 06/02/19 13:38 - History of Present Illness INITIAL COMMENTS - FREE TEXT/NARRATIVE: HISTORY AND PHYSICAL: History of present illness: Patient 24-year-old white male was recently discharged from hospital after cellulitis of his left upper extremity related to IV drug abuse who presents now for medication refill patient states he lost his prescription for his Bactrim he denies any other concern or complaint. Review of systems: As per history of present illness and below otherwise all systems reviewed and negative. Past medical history: As per history of present illness and as reviewed below otherwise noncontributory. Surgical history: As per history of present illness and as reviewed below otherwise noncontributory. Social history: No reported history of drug or alcohol abuse. Family history: As per history of present illness and as reviewed below otherwise noncontributory. Physical exam: HEENT: Atraumatic, normocephalic, pupils reactive, negative for conjunctival pallor or scleral icterus, mucous membranes moist, throat clear, neck supple, nontender, trachea midline. Lungs: Clear to auscultation, breath sounds equal bilaterally, chest nontender. Heart: S1S2, regular, negative for clicks, rubs, or JVD. Abdomen: Soft, nondistended, nontender. Negative for masses or hepatosplenomegaly. Negative for costovertebral tenderness. Pelvis: Stable nontender. Genitourinary: Deferred. Rectal: Deferred. Extremities: Dressing in place neurovascular exam unremarkable markedly diminished erythema and swelling from prior Neuro: Awake, alert, oriented. Cranial nerves II through XII unremarkable. Cerebellum unremarkable. Motor and sensory unremarkable throughout. Exam nonfocal. Diagnostics: None Therapeutics: None Impression: #1 medication refill #2 medical screening exam Definitive disposition and diagnosis as appropriate pending reevaluation and review of above. - Related Data Allergies Allergy/AdvReac Type Severity Reaction Status Date / Time No Known Allergies Allergy Verified 06/02/19 13:35 Home Meds: Home Meds Sulfamethoxazole/Trimethoprim [Bactrim Ds Tablet] 1 each PO BID 8 Days #16 tablet 05/31/19 [Rx] Past Medical History - Past Health History Medical/Surgical History: Denies Medical/Surgical History HEENT History: Reports: None Cardiovascular History: Reports: None Respiratory History: Reports: None Gastrointestinal History: Reports: None Genitourinary History: Reports: None Musculoskeletal History: Reports: None Neurological History: Reports: None Psychiatric History: Reports: None Endocrine/Metabolic History: Reports: None Hematologic History: Reports: None Immunologic History: Reports: None Oncologic (Cancer) History: Reports: None Dermatologic History: Reports: Other (See Below) Other Dermatologic History: adbcess - Infectious Disease History Infectious Disease History: Reports: None - Past Surgical History Head Surgeries/Procedures: Reports: None HEENT Surgical History: Reports: None Cardiovascular Surgical History: Reports: None Respiratory Surgical History: Reports: None GI Surgical History: Reports: None Male Surgical History: Reports: None Endocrine Surgical History: Reports: None Neurological Surgical History: Reports: None Musculoskeletal Surgical History: Reports: None Oncologic Surgical History: Reports: None Dermatological Surgical History: Reports: None Social & Family History - Family History Family Medical History: Noncontributory - Tobacco Use Smoking Status *Q: Current Every Day Smoker Years of Tobacco use: 4 Packs/Tins Daily: 0.1 - Caffeine Use Caffeine Use: Reports: Coffee, Energy Drinks, Soda, Tea - Recreational Drug Use Recreational Drug Use: Yes Recreational Drug Type: Reports: Methamphetamine ED ROS GENERAL - Review of Systems Review Of Systems: ROS reveals no pertinent complaints other than HPI. ED EXAM, GENERAL - Physical Exam Exam: See Below (See dictation) Course - Vital Signs Last Recorded V/S: Last Vital Signs Temp 35.7 C 06/02/19 13:35 Pulse 101 H 06/02/19 13:35 Resp 18 06/02/19 13:35 BP 130/67 06/02/19 13:35 Pulse Ox 98 06/02/19 13:35 Departure - Departure Time of Disposition: 13:41 Disposition: Home, Self-Care 01 Condition: Good Clinical Impression: Medication refill, Encounter for medical screening examination - Discharge Information Referrals: PCP,Unknown [Primary Care Provider] - Additional Instructions: The following information is given to patients seen in the emergency department who are being discharged to home. This information is to outline your options for follow-up care. We provide all patients seen in our emergency department with a follow-up referral. The need for follow-up, as well as the timing and circumstances, are variable depending upon the specifics of your emergency department visit. If you don't have a primary care physician on staff, we will provide you with a referral. We always advise you to contact your personal physician following an emergency department visit to inform them of the circumstance of the visit and for follow-up with them and/or the need for any referrals to a consulting specialist. The emergency department will also refer you to a specialist when appropriate. This referral assures that you have the opportunity for followup care with a specialist. All of these measure are taken in an effort to provide you with optimal care, which includes your followup. Under all circumstances we always encourage you to contact your private physician who remains a resource for coordinating your care. When calling for followup care, please make the office aware that this follow-up is from your recent emergency room visit. If for any reason you are refused follow-up, please contact the [facility] emergency department at and asked to speak to the emergency department charge nurse. [] Bactrim as prescribed and keep scheduled appointments return as needed as discussed
== END 2019-06-02 13:55 | disposition home or self-care (01) ==
LOC: MW.ED 13:28
DX: Z13.9 Encounter for screening, unspecified (principal); Z76.0 Encounter for issue of repeat prescription; F17.210 Nicotine dependence, cigarettes, uncomplicated
CPT/HCPCS: 99281